=== PATIENT | female | born 1995 | race Caucasian/White ===

== ENCOUNTER 2022-04-05 14:51 | Outpatient (CLI) | payer MEDICAID, SELFPAY ==
[2022-04-05] VITALS (7 sets, daily range): BP systolic 99–114; BP diastolic 60–65; PULSE 83–100; BMI 30.2
[2022-04-05 16:03] LABS: Nitrazine Paper, PH Negative
== END 2022-04-05 16:45 | disposition home or self-care (01) ==
LOC: OBGYN 15:44 → OPOB 15:44
PROVIDERS: PCP Family Medicine; Visit Provider Family Medicine
DX: O26.899 Other specified pregnancy related conditions, unspecified trimester (principal); Z3A.00 Weeks of gestation of pregnancy not specified; N89.8 Other specified noninflammatory disorders of vagina
CPT/HCPCS: 59025; 83986; 87210; 99211

== ENCOUNTER 2022-05-07 21:41 | Outpatient (CLI) | payer MEDICAID, SELFPAY ==
[2022-05-07] VITALS (8 sets, daily range): BP systolic 106–126; BP diastolic 60–74; PULSE 69–94; TEMP 36.2–36.8; BMI 31.0
[2022-05-07 22:13] LABS: Actim Prom Negative
--- NOTE | 2022-05-08 00:01 | PC.NURSE ---
When taking patient off the monitor she states that I'm just really nervous about court tomorrow. Discussed being unable to keep patient inpatient since she is not joy and not in labor. Patient verbalizes understanding. Patient placed in queue for Medicaid transport in the am. Patient was advised that she could sleep in triage room until 7am.
[2022-05-08 00:35] VITALS: BP 110/69; PULSE 85; RESP 16; TEMP 36.8
== END 2022-05-08 00:35 | disposition home or self-care (01) ==
LOC: OPOB 21:43 → OBGYN 21:43
PROVIDERS: PCP Family Medicine; Visit Provider Family Medicine
DX: O26.899 Other specified pregnancy related conditions, unspecified trimester (principal); Z3A.00 Weeks of gestation of pregnancy not specified; R10.9 Unspecified abdominal pain; N89.8 Other specified noninflammatory disorders of vagina
CPT/HCPCS: 59025; 84112; 99211

== ENCOUNTER 2022-05-12 20:40 | Outpatient (CLI) | payer MEDICAID, SELFPAY ==
[2022-05-07 22:00] VITALS: TEMP 36.8
[2022-05-12] VITALS (9 sets, daily range): BP systolic 108–135; BP diastolic 58–85; PULSE 74–100; RESP 16–18; BMI 31.0
[2022-05-12 21:24] LABS: Amphetamines Screen Urine Negative (Negative); Barbiturates Screen Urine Negative (Negative); Benzodiazepines Screen Urine Negative (Negative); Cocaine Screen Urine Negative (Negative); Opiate Screen Urine Negative (Negative); PCP Screen Urine Negative (Negative); THC Screen Urine Negative (Negative)
== END 2022-05-12 23:07 | disposition home or self-care (01) ==
LOC: OPOB 20:40 → OBGYN 20:41
PROVIDERS: PCP Family Medicine; Visit Provider Family Medicine
DX: O26.899 Other specified pregnancy related conditions, unspecified trimester (principal); Z3A.00 Weeks of gestation of pregnancy not specified; R10.9 Unspecified abdominal pain
CPT/HCPCS: 59025; 80306; 99211

== ENCOUNTER 2022-05-15 18:43 | Inpatient (IN) | payer MEDICAID, SELFPAY ==
[2022-05-15] VITALS (53 sets, daily range): BP systolic 108–159; BP diastolic 55–95; PULSE 60–106; RESP 17–18; TEMP 35.8–36.9; O2SAT 90–100; BMI 30.2
[2022-05-15] MEDS: lactated ringers 1,000 ML 999 ML IV ×2 (17:23→19:44)
[2022-05-15 17:56] LABS: Amphetamines Screen Urine Negative (Negative); Barbiturates Screen Urine Negative (Negative); Benzodiazepines Screen Urine Negative (Negative); Cocaine Screen Urine Negative (Negative); Opiate Screen Urine Negative (Negative); PCP Screen Urine Negative (Negative); THC Screen Urine Negative (Negative)
[2022-05-15] MEDS: fentaNYL 50 mcg/mL INJ 2mL IVP (18:33)
[2022-05-15] MEDS: hyDROXYzine 25 mg Capsule 50 MG PO (18:35)
[2022-05-15] MEDS: acetaminophen 325 mg Tablet 650 MG PO (18:35)
[2022-05-15] MEDS: dextrose 5%-lactated ringers 1,000 ML 125 ML IV (18:38)
[2022-05-15 18:53] LABS: Basophils % 0.2 %; Eosinophils # 0.1 10^3/uL (0.0-0.8); Eosinophils % 0.3 %; Hematocrit 37.8 % (37.0-47.0); Hemoglobin 12.4 g/dL (11.5-15.3); Lymphocytes # 1.2 10^3/uL (0.8-4.8); Lymphocytes % 6.3 %; Mean Corpuscular HGB Conc 32.8 g/dL (30.0-36.0); Mean Corpuscular Volume 85.3 fl (81-99); Mean Platelet Volume 9.8 fL (7.4-10.4); Monocytes # 1.4 10^3/uL (0.2-0.9); Monocytes % 7.2 %; Neutrophils # 16.24 10^3/uL (1.8-7.7); Neutrophils % 85.1 %; Nucleated Red Blood Cells % 0 %; Platelet Count 388 10^3/cmm (130-400); Red Blood Count 4.43 10^6/uL (4.1-5.3); Red Cell Distribution Width 13.7 % (12.1-15.1); White Blood Count 19.1 10^3/uL (4.0-10.0)
--- NOTE | 2022-05-15 21:25 | ANES.PREANE2 ---
Pre-Anesthetic Assessment Height/Weight: Height 1.7 m Weight 87.543 kg Temp Pulse Resp BP Pulse Ox O2 Del Method 98.5 F 79 18 129/57 90 05/15/22 21:04 05/15/22 21:21 05/15/22 21:04 05/15/22 21:21 05/15/22 21:20 05/15/22 19:54 Preop Diagnosis: IUP Labor epidural Familial anesthetic complications: None Was Beta Tasha taken within 24 hours: N/A Was Clonidine taken within 24 hours: N/A Last intake: 1800- Liquid 1200-solid Social No alcohol and No tobacco Exam alert, oriented x 3, clear to auscultation bilaterally and regular rate & rhythm Airway Submandibular: within normal limits Cervical ROM: within normal limits Mallampati: Class II Dentition: full History/ROS No significant history except as noted Pulmonary None reported CV/HEM None reported None reported Hepatic None reported GI None reported Metabolic None reported Musc/skel None reported Neuropsych None reported Anesthetic Plan ASA status: 2 Anesthesia: Anesthesia Evaluation and Regional (specify below) (epidural) Risk of > 500 ml blood loss (7ml/kg in children): No Medications/Allergies Home Medications Medication Instructions Recorded Confirmed Last Taken Type 1 tab PO DAILY 04/05/22 05/12/22 05/12/22 History 0700 Allergies Allergy/AdvReac Type Severity Reaction Status Date / Time Penicillins Allergy ALGY-Rash Verified 05/07/22 22:12 Current Medications Generic Name Dose Route Start Last Admin Trade Name Freq PRN Reason Stop Dose Admin Acetaminophen 650 mg 05/15/22 18:06 05/15/22 18:35 Acetaminophen 325 Mg Tablet PO 650 mg Q6H PRN Administration Mild pain or temp > 100.4 Fentanyl 25 - 100 mcg 05/15/22 18:06 05/15/22 18:33 Fentanyl 50 Mcg/Ml Inj 2ml IVP 25 mcg Q1H PRN Administration SEVERE PAIN Hydroxyzine Pamoate 50 mg 05/15/22 18:06 05/15/22 18:35 Hydroxyzine 25 Mg Capsule PO 50 mg QID PRN Administration sleep, agitation or itching Dextrose/Lactated Ringer's 1,000 mls @ 125 mls/hr 05/15/22 18:15 05/15/22 18:38 Dextrose 5%-Lactated Ringers IV 125 mls/hr .Q8H ZOË Administration Ropivacaine 200 mg in 100 mls @ 13 mls/hr 05/15/22 19:45 05/15/22 21:23 Naropin Premix EPIDURAL 13 mls/hr .Q7H42M ZOË Administration Lactated Ringer's 1,000 mls @ 999 mls/hr 05/15/22 19:40 05/15/22 19:44 Lactated Ringers IV 999 mls/hr .Q1H1M PRN Administration See label comments PFSH Anesthesia Female Reproductive History : 5 Data Anesthesia 05/15/22 17:15 Short CBC 05/15/22 Range/Units 17:15 WBC 19.1 H (4.0-10.0) 10^3/uL Hgb 12.4 (11.5-15.3) g/dL Hct 37.8 (37.0-47.0) % MCV 85.3 (81-99) fl Plt Count 388 (130-400) 10^3/cmm Neut % (Auto) 85.1 % Neut # (Auto) 16.24 H (1.8-7.7) 10^3/uL Cardiac Studies: No Data to Display Anesthesia Procedures Date of Procedure 05/15/22 Epidural Time Out Performed: Yes Consents Signed: Procedure Consent Consent: requested by attending/covering physician, from patient, risks and benefits reviewed and patient agrees to proceed Lumbar Level: L3-L4 Epidural position: sitting Epidural procedure: sterile prep of area, 1% lidocaine to numb the area, 18 g needle, negative for paresthesia passed, neg for paresthesia, test dose given, 1.5% xylocaine 1:200k epi, placed PCEA, no systemic response, sterile dressing applied, L.U.D. no apparent complications and 0.2% Ropiavacaine @ mls/hr (13) Additional Comments: DIANA 7cm,
[2022-05-16] VITALS (35 sets, daily range): BP systolic 91–150; BP diastolic 51–80; PULSE 59–127; RESP 16–18; TEMP 36.4–37.1; O2SAT 96–98
--- NOTE | 2022-05-16 06:16 | P.HP_ITS ---
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 Patient was noted to be 4 cm dilated with bulging bag at that time. She was joy every 2 to 3 minutes initially. There were no complications during the except there was concerns about fetus measuring large for gestational age, however this was followed with growth ultrasounds and baby stayed within normal parameters. No labs were unremarkable. The patient was GBS negative. Patient continued to progress overnight until cervical completion. Present Details : 5 Para: 3 Labs Rubella: Immune RPR: Negative GBS: Negative Medications/Allergies Home Medications Medication Instructions Recorded Confirmed Last Taken Type 1 tab PO DAILY 04/05/22 05/12/22 05/12/22 History 0700 Allergies Allergy/AdvReac Type Severity Reaction Status Date / Time Penicillins Allergy ALGY-Rash Verified 05/07/22 22:12 History History History 5 Term 4 Miscarriages/Ectopic Living Children 4 Vitals/I&O/Wt Last Vital Signs Temp 98.8 F 05/16/22 00:28 Pulse 100 05/16/22 06:02 Resp 18 05/15/22 21:04 BP 131/79 05/16/22 06:02 Pulse Ox 99 05/15/22 21:57 O2 Del Method 05/16/22 00:28 05/15/22 05/15/22 05/16/22 14:59 22:59 06:59 Intake Total 137.5 / 137.5 100 / 237.5 Balance 137.5 / 137.5 100 / 237.5 Weight last 48 hrs Weight 87.543 kg Physical Exam Const: COMMON NORMALS: no acute distress, healthy appearing and alert HENMT: COMMON NORMALS: normocephalic and moist oral mucous membranes Neck/C-Spine: COMMON NORMALS: supple Resp: COMMON NORMALS: normal respiratory effort and No retractions Cardio: COMMON NORMALS: regular rate and regular rhythm Extremity: COMMON NORMALS: no clubbing, cyanosis or edema Neuro: COMMON NORMALS: moves all extremities, no focal motor deficits and no sensory deficits noted Psych: COMMON NORMALS: mental status grossly normal and normal affect Skin: COMMON NORMALS: no rashes or lesions noted Urinary Catheter Management: Pérez: Cath Placed During This Visit: yes Urinary Catheter Date of Insertion: 05/15/22 Urinary Catheter Time of Insertion: 21:50 Data 05/15/22 17:15 A&P Assessment and plan (1) Term : Patient appears to be in labor. Continue with routine labor management. Attestations Medical Necessity Statement*: Anticipate less than 2 midnight stay Coding Level of Care Code Acute Girls Swimming Coach for Chg Fwd Diagnoses Term Z34.90
--- NOTE | 2022-05-16 06:24 | P.PCNOB_ITS ---
Delivery Note: Date of delivery: May 16, 2022 Pre-delivery diagnoses: Term Post-delivery diagnoses: Same, viable male Procedure: Spontaneous vaginal delivery Delivering Physician: Dr. Tripp Menjivar Estimated blood loss (mL): 150 Pre-Delivery Course: This is a 26-year-old female at 37 weeks 5 days that presented with contractions. She progressed slowly overnight to completion. Approximately 3 hours prior to delivery the patient did have spontaneous rupture of her membranes. Delivery: After the patient was completely dilated the patient was put into a normal lithotomy position and started pushing. It was noted that the infant appeared to be OP patient continued to push multiple times until delivery of a viable male was accomplished. During pushing meconium stained fluid was noted and this was a change from previous which was clear upon rupture. There was a loose nuchal cord x1 that was delivered through. The cord was then clamped and cut and handed to awaiting nursing staff. was taken over to the warmer for additional suctioning. Placenta was then delivered without incident. Perineum was evaluated and no tear was noted. Bleeding was appropriate and mom was stabl at the end of the procedure. Post-Delivery Status: Stable History History History 5 Term 4 Miscarriages/Ectopic Living Children 4 A&P Assessment and plan (1) Term : Proceed with care (2) Meconium in amniotic fluid: Coding Level of Care Code Acute Probation Counselor for Chg Fwd Diagnoses Term Z34.90 Meconium in amniotic fluid P96.83
[2022-05-16] MEDS: ibuprofen 800 mg tablet PO ×3 (08:04→20:21)
[2022-05-16] MEDS: docusate sodium 100 mg Capsule PO ×2 (08:04→17:56)
[2022-05-16] MEDS: prenatal vitamin Capsule 1 CAP PO (08:05)
[2022-05-16] MEDS: benzocaine-menthol 78 gm Canister 1 SPRAY TOPICAL (08:05)
[2022-05-16] MEDS: lanolin oint 7 gm 1 APPLIC TOPICAL (08:05)
[2022-05-16] MEDS: HYDROcodone-acetaminophen 5-325 mg Tablet PO (10:46)
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
[2022-05-16] MEDS: metroNIDAZOLE 500 MG Tablet PO (15:06)
[2022-05-16] MEDS: acetaminophen 325 mg Tablet 650 MG PO (15:50)
[2022-05-16 23:50] LABS: Hematocrit 33.5 % (37.0-47.0); Hemoglobin 10.9 g/dL (11.5-15.3); Mean Corpuscular HGB Conc 32.5 g/dL (30.0-36.0); Mean Corpuscular Hemoglobin 28.2 pg (28.0-34.0); Mean Corpuscular Volume 86.8 fl (81-99); Mean Platelet Volume 9.6 fL (7.4-10.4); Platelet Count 310 10^3/cmm (130-400); Red Blood Count 3.86 10^6/uL (4.1-5.3); Red Cell Distribution Width 14.1 % (12.1-15.1); White Blood Count 20.9 10^3/uL (4.0-10.0)
[2022-05-17] VITALS: BP 105/62; PULSE 68; RESP 16; TEMP 36.6; O2SAT 98
[2022-05-17 05:35] VITALS: BP 115/73; PULSE 64; RESP 16; TEMP 36.7; O2SAT 97
--- NOTE | 2022-05-17 07:12 | P.DS_ITS ---
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 Hospital Course Hospital Course After arrival patient was noted to be 4 cm with a bulging bag. Patient was noted to be joy every 2 to 3 minutes. Patient was having initial decelerations and heart tones which improved with IV fluids. Patient progressed to completion slowly overnight. Patient had spontaneous rupture of her membranes. Patient then delivered a well male via spontaneous vaginal delivery without complication. Patient had unremarkable care and breast-feeding has been going well. Information Peripartum Data: Infant Delivery Method: Vaginal Laceration description: None Episiotomy description: None complications: none Physical Exam Const: COMMON NORMALS: no acute distress, healthy appearing and alert HENMT: COMMON NORMALS: normocephalic and moist oral mucous membranes HEAD & SCALP: normocephalic Neck/C-Spine: COMMON NORMALS: supple Resp: COMMON NORMALS: normal respiratory effort and No retractions Cardio: COMMON NORMALS: regular rate and regular rhythm RATE: regular rate RHYTHM: regular rhythm Extremity: COMMON NORMALS: no clubbing, cyanosis or edema Neuro: COMMON NORMALS: moves all extremities, no focal motor deficits and no sensory deficits noted SENSORIUM/ORIENTATION: Yes alert Psych: COMMON NORMALS: mental status grossly normal and normal affect Skin: COMMON NORMALS: no rashes or lesions noted GENERAL SKIN EXAM: no rashes or lesions noted Urinary Catheter Management: Pérez: Cath Placed During This Visit: yes, but has since been removed by the nurse Reason for Continuing Indwelling Catheter: Decision to DC Catheter Urinary Catheter Date of Insertion: 05/15/22 Urinary Catheter Time of Insertion: 21:50 Date Urinary Catheter Removed: 05/16/22 Time Urinary Catheter Discontinued: 05:20 History History History 5 Term 4 Miscarriages/Ectopic Living Children 4 Discharge Data Studies Completed and Pending Laboratory Results WBC 20.9 10^3/uL (4.0-10.0) H 05/16/22 23:00 RBC 3.86 10^6/uL (4.1-5.3) L 05/16/22 23:00 Hgb 10.9 g/dL (11.5-15.3) L 05/16/22 23:00 Hct 33.5 % (37.0-47.0) L 05/16/22 23:00 MCV 86.8 fl (81-99) 05/16/22 23:00 MCH 28.2 pg (28.0-34.0) 05/16/22 23:00 MCHC 32.5 g/dL (30.0-36.0) 05/16/22 23:00 RDW 14.1 % (12.1-15.1) 05/16/22 23:00 Plt Count 310 10^3/cmm (130-400) 05/16/22 23:00 MPV 9.6 fL (7.4-10.4) 05/16/22 23:00 Neut % (Auto) 85.1 % 05/15/22 17:15 Lymph % (Auto) 6.3 % 05/15/22 17:15 Drew % (Auto) 7.2 % 05/15/22 17:15 Eos % (Auto) 0.3 % 05/15/22 17:15 Baso % (Auto) 0.2 % 05/15/22 17:15 Neut # (Auto) 16.24 10^3/uL (1.8-7.7) H 05/15/22 17:15 Lymph # (Auto) 1.2 10^3/uL (0.8-4.8) 05/15/22 17:15 Drew # (Auto) 1.4 10^3/uL (0.2-0.9) H 05/15/22 17:15 Eos # (Auto) 0.1 10^3/uL (0.0-0.8) 05/15/22 17:15 Baso # (Auto) 0.0 10^3/uL (0.0-0.1) 05/15/22 17:15 Nucleated RBC % (auto) 0 % 05/15/22 17:15 Nucleated RBCs # 0.0 /100WBC 05/15/22 17:15 Urine Opiates Screen Negative ng/mL (Negative) 05/15/22 17:30 Ur Barbiturates Screen Negative ng/mL (Negative) 05/15/22 17:30 Ur Phencyclidine Scrn Negative ng/mL (Negative) 05/15/22 17:30 Ur Amphetamines Screen Negative ng/mL (Negative) 05/15/22 17:30 U Benzodiazepines Scrn Negative ng/mL (Negative) 05/15/22 17:30 Urine Cocaine Screen Negative ng/mL (Negative) 05/15/22 17:30 U Marijuana (THC) Screen Negative ng/mL (Negative) 05/15/22 17:30 Vitals Last Vital Signs Temp 98.0 F 05/17/22 05:35 Pulse 64 05/17/22 05:35 Resp 16 05/17/22 05:35 BP 115/73 05/17/22 05:35 Pulse Ox 97 05/17/22 05:35 O2 Del Method 05/17/22 05:35 Discharge Plan Discharge Patient Disposition: Home Condition: Stable Prescriptions: Continued 1 tab PO DAILY Discharge Orders: Discharge Order (Routine); Ordered 05/17/22 Ordered By: Bautista Menjivar Discharge Diet: Usual diet Discharge Activity: Limit activity as instructed Patient Instructions: Opioid Safety Discharge Attestations WINDOW UNIT AIR CONDITIONING MECHANIC Time Spent in Discharge Care*: less than 30 min Coding Level of Care Code Acute 2 Year Olds Preschool Teacher for Chg Fwd Diagnoses Term Z34.90 Meconium in amniotic fluid P96.83 Normal vaginal delivery O80
--- NOTE | 2022-05-17 08:00 | ANE.PACU2 ---
Inpatient post-anesthesia follow up: Airway intact: Yes Vital signs: Temperature 98.0 F Pulse Rate 70 Respiratory Rate 16 Blood Pressure 130/80 Pulse Oximetry 98 Oxygen Delivery Me thod Room Air Oxygen Flow Rate Fraction of Inspir ed Oxygen Hydration adequate: Yes Nausea and vomiting: No Pain level: 1 Mental status: Baseline
[2022-05-17] MEDS: metroNIDAZOLE 500 MG Tablet PO ×2 (09:50→21:23)
[2022-05-17] MEDS: prenatal vitamin Capsule 1 CAP PO (09:50)
[2022-05-17] MEDS: docusate sodium 100 mg Capsule PO ×2 (09:50→21:24)
[2022-05-17] MEDS: ibuprofen 800 mg tablet PO ×3 (09:50→21:24)
[2022-05-17 09:54] VITALS: BP 116/74; PULSE 62; RESP 18; TEMP 36.8; O2SAT 96
[2022-05-17] MEDS: HYDROcodone-acetaminophen 5-325 mg Tablet PO (11:02)
--- NOTE | 2022-05-17 16:50 | PC.NURSE ---
Medicaid transport called by this RN and address given to program scheduler. Trip ID # [id number] ADAL FLORES
[2022-05-17 17:08] VITALS: BP 132/89; PULSE 70; RESP 18; TEMP 37; O2SAT 95
--- NOTE | 2022-05-17 18:06 | PC.NURSE ---
Patient medicaid transport called at this time due to patient stating she received a phone call that her ride was cancelled. medical administrative assistant states she is unsure why transportation has been cancelled, and states she will reset trip. Patient medicaid transportation dispatch manager placed RN on hold. Returned to line and stated, no one was answering for transportation service, and she was sending trip to a short notice trip team, which is a team of supervisors she stated. Patient medicaid transportation dispatch manager states they will call to notify us of trip confirmation, and states ride could take up to 3 hours to arrive to facility. ADAL FLORES
--- NOTE | 2022-05-17 19:10 | PC.NURSE ---
Medicaid transport called and asked where the pt was located and this nurse replied in the OB department and he asked if the pt was ready and this nurse replied yes the pt has been ready for several hours. He stated they have been trying to find a ride for the pt and he would start working on it.
[2022-05-17 21:40] VITALS: BP 130/80; PULSE 70; RESP 16; TEMP 36.7; O2SAT 98
== END 2022-05-17 21:45 | disposition home or self-care (01) | DRG 807 ==
LOC: OPOB 18:43 → OBGYN 18:43
PROVIDERS: Absent Provider Family Medicine; Admitting Provider Family Medicine; PCP Family Medicine; Visit Provider Family Medicine
DX: O69.2XX0 Labor and delivery complicated by other cord entanglement, with compression, not applicable or unspecified (principal); Z37.0 Single live birth; O77.0 Labor and delivery complicated by meconium in amniotic fluid; Z3A.37 37 weeks gestation of pregnancy
CPT/HCPCS: 36415; 51702; 59025; 59409; 80306; 85025; 85027; 99211; J2795; J3010; J7120; J7121

== ENCOUNTER 2023-04-29 14:03 | Emergency (ER) | payer MEDICAID, SELFPAY ==
[2023-04-29 14:17] VITALS: BP 120/72; PULSE 84; RESP 16; TEMP 36.7; O2SAT 98; BMI 26.3
--- NOTE | 2023-04-29 14:44 | ED_ITS ---
HPI - 2 General: Chief complaint: OB/Uterine Contractions Stated complaint: cramps,10 wks preg Time Seen by Provider: 04/29/23 14:37 History of Present Illness: Patient comes in today with cramping and approximately her 10-week of . Patient reports symptoms started last night. Patient reports significant discomfort with it. Patient denies any bleeding or vaginal discharge. Patient has had some diarrhea. Patient reports no difficulty of urination. Patient has had a total of 6 pregnancies, 4 live births, 1 miscarriage. Patient is only been taking her vitamin. Patient takes no routine medicines. Patient appears nontoxic. Patient appears in mild to moderate pain. Date of Last Menstrual Period: 03/09/23 Associated symptoms: Deny headache(s), nausea, vaginal discharge or vomiting Related Data: : 6 Para: 4 Total number of abortions (spontaneous and elective): 1 Review of Systems 2 General: Reports: 10 or more systems reviewed and unremarkable except in HPI and below Const: Denies: fever(s) ENMT: Denies: throat pain Card: Denies: chest pain Resp: Denies: dyspnea GI: Reports: diarrhea; Denies: nausea, vomiting or constipation : Reports: pelvic pain; Denies: difficulty voiding, vaginal bleeding or vaginal discharge Musc: Denies: back pain Neuro: Denies: headache(s) Psych: Denies: depression PFSH ED 2 PFSH: Medical History (Updated 04/29/23 @ 16:05 by YESI Pyle) Psychiatric care Female Reproductive History: Date of last menstrual period: 03/09/23 G ravida: 6 Physical Exam 2 Const: COMMON NORMALS: alert HENMT: COMMON NORMALS: normocephalic HEAD & SCALP: normocephalic MOUTH: Normal oral and palatal mucosa present Neck/C-Spine: COMMON NORMALS: full ROM Resp: COMMON NORMALS: normal respiratory effort and clear to auscultation bilaterally AUSCULTATION: clear to auscultation bilaterally Cardio: COMMON NORMALS: regular rate and regular rhythm RATE: regular rate RHYTHM: regular rhythm GI: COMMON NORMALS: Soft to palpation PALPATION: Yes Soft to palpation Back/Pelvis: COMMON NORMALS: thoracic and lumbar spine normal to inspection Extremity: COMMON NORMALS: no pedal edema Neuro: SENSORIUM/ORIENTATION: Yes alert Skin: COMMON NORMALS: turgor normal GENERAL SKIN EXAM: turgor normal Course 2 Vital Signs: Vital signs: Vital Signs Temperature 98.1 F 04/29/23 14:17 Pulse Rate 84 04/29/23 14:17 Respiratory Rate 16 04/29/23 14:17 Blood Pressure 120/72 04/29/23 14:17 Pulse Oximetry 98 04/29/23 14:17 Oxygen Delivery Me thod Room Air 04/29/23 14:17 MDM - OB/Uterine Contractions Medical Decision Making 27-year-old female comes in today with complaints of pelvic cramping in her approximately 10th week of . Patient denies any vaginal discharge or bleeding. Patient reports cramping started early this morning to last night. Patient appears nontoxic. Patient reports no urinary difficulty. Patient has had some diarrhea. Vital signs are normal. Differential diagnosis includes urinary tract infection, gastroenteritis, dehydration, threatened , subchorionic hemorrhage. CBC, CMP and urinalysis were unremarkable. Ultrasound noted a viable infant in the seventh week of . No signs of abnormality or ectopic was noted. Reviewed exam with patient with recommendations for conservative treatment and follow-up with primary care for recheck. Recommend return to the ER for worsening symptoms such as fever, inability to hold fluids down, or new concerns. Lab Data 04/29/23 14:55 04/29/23 14:55 Laboratory Results WBC 11.03 10^3/uL (3.29-11.43) 04/29/23 14:55 RBC 4.53 10^6/uL (3.85-5.65) 04/29/23 14:55 Hgb 13.30 g/dL (11.27-16.99) 04/29/23 14:55 Hct 40.2 % (36-47) 04/29/23 14:55 MCV 88.7 fl (85-98) 04/29/23 14:55 MCH 29.4 pg (27-33) 04/29/23 14:55 MCHC 33.1 g/dL (30-55) 04/29/23 14:55 RDW 13.2 % (12.1-15.1) 04/29/23 14:55 Plt Count 352 10^3/cmm (157-399) 04/29/23 14:55 MPV 8.8 fL (7.4-10.4) 04/29/23 14:55 Neut % (Auto) 69.7 % 04/29/23 14:55 Lymph % (Auto) 19.6 % 04/29/23 14:55 Bleckley % (Auto) 7.0 % 04/29/23 14:55 Eos % (Auto) 2.7 % 04/29/23 14:55 Baso % (Auto) 0.7 % 04/29/23 14:55 Neut # (Auto) 7.69 10^3/uL (1.8-7.7) 04/29/23 14:55 Lymph # (Auto) 2.2 10^3/uL (0.8-4.8) 04/29/23 14:55 Bleckley # (Auto) 0.8 10^3/uL (0.2-0.9) 04/29/23 14:55 Eos # (Auto) 0.3 10^3/uL (0.0-0.8) 04/29/23 14:55 Baso # (Auto) 0.1 10^3/uL (0.0-0.1) 04/29/23 14:55 Nucleated RBC % (auto) 0 % 04/29/23 14:55 Nucleated RBCs # 0.0 /100WBC 04/29/23 14:55 Sodium 133 mmol/L (136-145) L 04/29/23 14:55 Potassium 4.2 mmol/L (3.5-5.1) 04/29/23 14:55 Chloride 100 mmol/L (98-107) 04/29/23 14:55 Carbon Dioxide 21 mmol/L (22-29) L 04/29/23 14:55 Anion Gap 16.2 (5-19) 04/29/23 14:55 BUN 8 mg/dL (6-20) 04/29/23 14:55 Creatinine 0.9 mg/dL (0.5-0.9) 04/29/23 14:55 GFR Calculation 75.1 mL/min (90-130) L 04/29/23 14:55 Glucose 89 mg/dL (65-115) 04/29/23 14:55 Calculated Osmolality 274 mOsm/kg (285-295) L 04/29/23 14:55 Calcium 9.5 mg/dL (8.5-10.5) 04/29/23 14:55 Total Bilirubin 0.3 mg/dL (0.15-1.2) 04/29/23 14:55 AST 20 U/L (0-32) 04/29/23 14:55 ALT 19 U/L (0-33) 04/29/23 14:55 Alkaline Phosphatase 56 U/L (35-105) 04/29/23 14:55 Total Protein 7.0 g/dL (6.6-8.7) 04/29/23 14:55 Albumin 5.3 g/dL (3.5-5.2) H 04/29/23 14:55 Globulin 1.7 g/dL (1.3-4.6) 04/29/23 14:55 Ser , Semi-Qnt 42906.00 mIU/mL 04/29/23 14:55 Urine Color Yellow (Yellow) 04/29/23 14:46 Urine Appearance Clear (CLEAR) 04/29/23 14:46 Urine pH 7 (5-7) 04/29/23 14:46 Ur Specific [place] 1.010 (1.005-1.030) 04/29/23 14:46 Urine Protein Neg (Negative) 04/29/23 14:46 Urine Glucose (UA) Norm (Normal) 04/29/23 14:46 Urine Ketones Negative (Negative) 04/29/23 14:46 Urine Blood Neg (Negative) 04/29/23 14:46 Urine Nitrate Negative (Negative) 04/29/23 14:46 Urine Bilirubin Neg (Negative) 04/29/23 14:46 Urine Urobilinogen Norm mg/dL (Negative) 04/29/23 14:46 Ur Leukocyte Esterase Negative (Negative) 04/29/23 14:46 Blood Type B Positive 04/29/23 14:55 Rho(D) Type Rh positive 04/29/23 14:55 All radiology interpretation(s) finalized by discharge Discharge Plan Discharge Patient Disposition: Home Clinical Impression: Abdominal pain affecting Condition: Stable Prescriptions: No Action 1 tab PO DAILY ondansetron 4 mg tablet,disintegrating See Rx Instructions .ROUTE .COMPLEX Rx Instructions: TAKE 1 TABLET ON TOP OF TONGUE, THEN SWALLOW WITH SALIVA EVERY 8 HOURS NEEDED FOR NAUSEA/EMESIS nitrofurantoin monohyd/m-cryst 100 mg capsule 1 cap PO DAILY Discharge Orders: Discharge ED (Routine); Ordered 04/29/23 Ordered By: Heber Claros Referrals: Bautista Menjivar MD [Primary Care Provider] - Discharge Diet: Usual diet Discharge Activity: Increase activity as tolerated Patient Instructions: Abdominal Pain (ED) Activity Restrictions/Additional Instructions: Drink plenty of water and fluids. Activity as tolerated. No heavy lifting and pelvic rest until pain resolves. Follow-up with primary care for recheck. Return to ED for worsening symptoms such as high fever greater than 100.4, blood in vomit or stool, vaginal bleeding or discharge, or new concerns. Coding Level of Care Code ED Contracts Administrator for Bartolo Lacey
--- NOTE | 2023-04-29 14:44 | USR_ITS ---
PROCEDURE INFORMATION: Exam: US First Trimester, Transabdominal and US , Transvaginal Exam date and time: 04/29/2023 3:40 PM Age: 27 years old Clinical indication: complicated by abdominal or pelvic pain; Generalized abdominal pain; First trimester (<14 weeks 0 days); Gestational age or lmp: 7w2d; ; Additional info: 10 wks preg, severe pain TECHNIQUE: Imaging protocol: Real-time transabdominal obstetrical ultrasound of the maternal pelvis and a first trimester , less than 14 weeks 0 days, with image documentation. Transvaginal imaging was used for better evaluation of the fetus, adnexa, and/or cervix. COMPARISON: No relevant prior studies available. FINDINGS: Gestation: Intrauterine gestation. Yolk sac is unremarkable. Embryonic/ heart rate: 150 bpm. Extra-embryonic membranes/Placenta: Unremarkable. No subchorionic bleed. Amniotic fluid: Amniotic fluid and extra-amniotic fluid is normal for gestational age. BIOMETRY: Gestational age (AUA): 7 weeks and 1 day. Estimated date of delivery is December 15, 2023. MATERNAL: Uterus: Otherwise, unremarkable. Cervix: Unremarkable. Right ovary/adnexa: Unremarkable ovary. Left ovary/adnexa: Unremarkable ovary. Intraperitoneal space: No intraperitoneal free fluid. US/US OB <= 14 weeks fetus [id number] IMPRESSION: Unremarkable obstetrical ultrasound.
[2023-04-29] MEDS: sodium chloride 0.9% 1,000 ML 999 ML IV (15:02)
[2023-04-29 15:07] LABS: Add Urine Microscopic? NO; Charge for UA Resulting for Rev
[2023-04-29 15:09] LABS: Bilirubin Urine Neg (Negative); Blood Urine Neg (Negative); Glucose Urine UA Norm (Normal); Ketones Urine Negative (Negative); Leukocyte Esterase Urine Negative (Negative); Nitrate Urine Negative (Negative); Protein Urine Neg (Negative); Urine Appearance Clear (CLEAR); Urine Color Yellow (Yellow); Urobilinogen Urine Norm (Negative); pH Urine 7 (5-7)
[2023-04-29 15:12] LABS: Basophils # 0.1 10^3/uL (0.0-0.1); Basophils % 0.7 %; Eosinophils # 0.3 10^3/uL (0.0-0.8); Eosinophils % 2.7 %; Hematocrit 40.2 % (36-47); Lymphocytes # 2.2 10^3/uL (0.8-4.8); Lymphocytes % 19.6 %; Mean Corpuscular HGB Conc 33.1 g/dL (30-55); Mean Corpuscular Hemoglobin 29.4 pg (27-33); Mean Corpuscular Volume 88.7 fl (85-98); Mean Platelet Volume 8.8 fL (7.4-10.4); Monocytes # 0.8 10^3/uL (0.2-0.9); Neutrophils # 7.69 10^3/uL (1.8-7.7); Neutrophils % 69.7 %; Nucleated Red Blood Cells % 0 %; Platelet Count 352 10^3/cmm (157-399); Red Blood Count 4.53 10^6/uL (3.85-5.65); Red Cell Distribution Width 13.2 % (12.1-15.1); White Blood Count 11.03 10^3/uL (3.29-11.43)
[2023-04-29 15:38] LABS: Alanine Aminotransferase 19 U/L (0-33); Alkaline Phosphatase 56 U/L (35-105); Blood Urea Nitrogen 8 mg/dL (6-20); Calcium 9.5 mg/dL (8.5-10.5); Carbon Dioxide 21 mmol/L (22-29); Chloride 100 mmol/L (98-107); Glomerular Filtration Rate 75.1 mL/min (90-130); Glucose 89 mg/dL (65-115); Osmolality Calculated 274 mOsm/kg (285-295); Sodium 133 mmol/L (136-145); Total Bilirubin 0.3 mg/dL (0.15-1.2)
[2023-04-29 15:39] LABS: Anion Gap 16.2 (5-19); Potassium 4.2 mmol/L (3.5-5.1)
[2023-04-29 15:40] LABS: Aspartate Amino Transferase 20 U/L (0-32)
[2023-04-29 15:50] LABS: Albumin Level 5.3 g/dL (3.5-5.2); Globulin 1.7 g/dL (1.3-4.6)
[2023-04-29 16:15] VITALS: BP 120/72; PULSE 84; RESP 16; TEMP 36.7; O2SAT 98
== END 2023-04-29 16:16 | disposition home or self-care (01) ==
PROVIDERS: Emergency Provider Nurse Practitioner Family; PCP Family Medicine
DX: O26.891 Other specified pregnancy related conditions, first trimester (principal); R10.2 Pelvic and perineal pain; Z3A.10 10 weeks gestation of pregnancy
CPT/HCPCS: 76801; 80053; 81003; 84702; 85025; 86900; 96360; 99284; J7030